=== PATIENT | female | born 1955 | race Caucasian/White ===

== ENCOUNTER 2020-05-12 11:42 | Day surgery (SDC) | payer MEDICARE, SELFPAY ==
--- NOTE | 2020-05-12 | PATH_ITS ---
[facility] Accession Number: [id number] . 01 Material submitted: . PART A: colon - POLYP AT 60CM PART B: colon - POLYP AT 10 PART C: colon - CECAL POLYP PART D: colon - POLYP AT 90CM PART E: colon - POLYP @ 70CM . 02 Diagnosis: A. Polyp at 60 cm: Tubular adenoma. . B. Polyp at 10 cm: Portions of tubular adenoma x2. . C. Cecal Polyp: Tubular adenoma. . D. Polyp at 90 cm: Tubular adenoma. . E. Polyp at 70 cm: Portions of tubular adenoma x2. [facility] 05/13/2020 1302 Local . 02 Electronically signed: . Yara Salmeron MD, Pathologist NPI- [id number] . 01 Gross description: . Part A: POLYP AT 60CM: Received in formalin is 1 fragment(s) of mays, soft tissue measuring 0.5 x 0.4 x 0.4 cm submitted entirely in 1 cassette(s) Part B: POLYP AT 10: Received in formalin are 2 fragment(s) of mays, soft tissue measuring 0.2 x 0.2 x 0.2 cm to 0.5 x 0.5 x 0.5 cm submitted entirely in 1 cassette(s) Part C: CECAL POLYP: Received in formalin is 1 fragment(s) of mays, soft tissue measuring 0.2 x 0.2 x 0.2 cm submitted entirely in 1 cassette(s) Part D: POLYP AT 90CM: Received in formalin is 1 fragment(s) of mays, soft tissue measuring 0.5 x 0.5 x 0.5 cm submitted entirely in 1 cassette(s) Part E: POLYP @ 70CM: Received in formalin are 2 fragment(s) of mays, soft tissue measuring 0.2 x 0.2 x 0.2 cm to 0.3 x 0.3 x 0.2 cm submitted entirely in 1 cassette(s) /LOVE 05/13/2020 0018 Local . 02 Pathologist provided ICD-10: K63.5 . 02 CPT . 157825, [id number], [id number], [id number], [id number] Performed at: 01 [facility] [address] [place] [address], [place], [place] [id number] MD David Acosta MD Phone: [phone] Performed at: 02 [facility] [address] [place], [place] [id number] MD Lynn Peralta MD Phone: [phone]
[2020-05-12 12:27] VITALS: BP 160/84; PULSE 88; RESP 22; TEMP 36.4; O2SAT 95; BMI 47.2
[2020-05-12] MEDS: LACTATED RINGERS 1,000 ML 125 ML IV (12:43)
--- NOTE | 2020-05-12 12:44 | SUR.PREOP ---
PT IS POOR HISTORIAN REGARDING HER MEDS, SHE STATES SHE IS ON 2 BLOOD PRESSURE MEDS BUT DOESNT RECALL THE NAMES, SHE ALSO STATES SHE HASNT TAKEN ANY OF HER MEDS FOR A WEEK EXCEPT HER PAIN PILL WHICH SHE TOOK THIS AM.
--- NOTE | 2020-05-12 13:00 | PM.PREOP ---
Pre-operative Note COVID-19 COVID-19 status: Negative Interval Note History & Physical reviewed/Exam performed by Physician: Yes Changes to H&P: No ASA Class (for procedural sedation): II
[2020-05-12] MEDS: fentaNYL 250 MCG/5 ML INJ IV (13:06)
[2020-05-12] MEDS: MIDAZOLAM 5 MG/5 ML VIAL IV (13:07)
--- NOTE | 2020-05-12 13:53 | PM.OP.ENDO ---
Operative Date/Time/Diagnoses Date of procedure: 05/12/20 Time of procedure: 13:53 Pre-op diagnosis: blood per rectum Post-op diagnosis: same Procedure & Clinicians Study performed: Colonoscopy Same procedure as scheduled: Yes Indications: 64-year-old female no prior colonoscopy had blood per rectum presents for routine screening Surgeon: Norm Auguste Procedure Notes SCOAP/Timeout: Performed Procedure in detail: Patient placed in left lateral decubitus position. Time out was performed. Procedural sedation was administered with Versed and Fentanyl. A rectal exam demonstrated no external hemorrhoids no internal masses. Colonoscopy scope was placed into the rectum and advanced through the colon to the cecum. The ileocecal valve was identified. The scope was then slowly withdrawn examining colon thoroughly in all directions. The colonoscopy was notable for the following. There were multiple adenomatous appearing polyps all less than 2 cm in diameter. 1. Adenomatous polyp 60 cm removed with hot snare 2. Adenomatous polyps x 2 at 100 cm removed with hot snare 3. Less than 1 cm diameter adenomatous polyp removed from cecum with biopsy forceps 4. Adenomatous appearing polyp less than 1 cm at 90 cm removed with biopsy forceps 5. Adenomatous polyp by 1.5 cm at 70 cm removed with hot snare 6. Quality of prep fair Scope withdrawal time: 14 Sedation minutes: 40 Findings: polyp Specimen(s): other (Polyps from 60 cm, 100 cm x 2, cecum, 90 cm, 70 cm) Complications: none Impression: Multiple polyps Post-procedure Recommendations: Colonscopy in 3 years Disposition: same day surgery
[2020-05-12 14:00] VITALS: BP 150/79; PULSE 67; RESP 15; TEMP 36.1; O2SAT 97
[2020-05-12 14:05] VITALS: BP 106/71; PULSE 74; RESP 12; O2SAT 98
[2020-05-12 14:10] VITALS: BP 152/78; PULSE 67; RESP 12; O2SAT 97
[2020-05-12 14:15] VITALS: BP 137/84; PULSE 62; RESP 13; O2SAT 94
[2020-05-12 14:21] VITALS: BP 138/77; PULSE 64; RESP 14; O2SAT 98
== END 2020-05-12 14:35 | disposition home or self-care (01) ==
PROVIDERS: Family Provider Family Medicine; PCP Family Medicine; Referring Provider Surgery; Visit Provider Surgery
PROC: 0DJD8ZZ Inspection of Lower Intestinal Tract, Via Natural or Artificial Opening Endoscopic (ICD-10-PCS; CPT 45378; principal; 2020-05-12 13:00)
DX: K62.5 Hemorrhage of anus and rectum (principal); D12.0 Benign neoplasm of cecum; D12.6 Benign neoplasm of colon, unspecified; E66.9 Obesity, unspecified
CPT/HCPCS: 45385; 45380; 99152; 99153; J2250; J3010

== ENCOUNTER → 2022-06-12 11:50 | Outpatient (CLI) | payer MEDICARE, SELFPAY ==
[2022-06-12 12:17] LABS: Add Manual Diff / Slide Review NO; Basophils Absolute Auto 100 /uL (0-100); Basophils Percent Auto 0.8 % (0-2); Eosinophils Absolute Auto 800 /uL (0-450); Eosinophils Percent Auto 9.8 % (2-4); Hematocrit 37.7 % (36-46); Hemoglobin 12.7 g/dL (12.0-16.0); Lymphocytes Absolute Auto 1900 /uL (1100-4500); Lymphocytes Percent Auto 25.4 % (25-40); Mean Corpuscular HGB Conc 33.6 % (30-36); Mean Corpuscular Hemoglobin 29.2 PG (26-34); Mean Corpuscular Volume 86.9 fL (80-100); Monocytes Absolute Auto 500 /uL (0-900); Monocytes Percent Auto 6.5 % (3-14); Neutrophils Absolute Auto 4400 /uL (1500-7000); Neutrophils Percent Auto 57.5 % (50-75); Platelet Count 212 X10^3/uL (150-400); Red Blood Cell Count 4.33 X10^6/uL (4.0-5.2); Red Cell Distribution Width 15.4 % (11.6-14.8); White Blood Cell Count 7.7 X10^3/uL (4.5-11.0)
[2022-06-12 12:29] LABS: Alanine Aminotransferase 30 IU/L (<35); Albumin 4.1 g/dL (3.5-5.0); Albumin Globulin Ratio 1.5 (1.0-2.8); Alkaline Phosphatase 91 U/L (38-126); Aspartate Aminotransferase 36 IU/L (14-36); BUN Creatinine Ratio 47.8 (6-22); Bilirubin Total 0.6 mg/dL (0.2-1.3); Blood Urea Nitrogen 43 mg/dL (7-17); Carbon Dioxide 28 mmol/L (22-32); Chloride 101 mmol/L (98-107); Estimated Glomerular Filt Rate > 60 mL/min (>60); Globulin 2.7 g/dL (1.7-4.1); Glucose 116 mg/dL (80-110); HEMOLYSIS < 15 (0-50); Potassium 4.8 mmol/L (3.4-5.1); Sodium 138 mmol/L (137-145); Total Protein 6.8 g/dL (6.3-8.2)
[2022-06-12 13:15] LABS: Hemoglobin A1C% w Est Avg Glu 5.8 % (4.0-6.0)
--- NOTE | 2022-06-12 13:46 | DI.CT.S_ITS ---
PROCEDURE: CT ABDOMEN PELVIS W CON INDICATIONS: INTRA-ABDOMINAL AND PELVIC SWELLING/MASS/LUMP TECHNIQUE: After the administration of oral and IV contrast, axial sections were acquired from the lung bases to the pubic symphysis. Coronal and sagittal reformats were performed. For radiation dose reduction, the following was used: automated exposure control, adjustment of mA and/or kV according to patient size. COMPARISON: [facility], CT, CT ABDOMEN PELVIS WITH CONTRAST, 12/28/2020, 6:45. FINDINGS: Image quality: Excellent. Lung bases: Respiratory motion at the lung bases. No dense consolidations or pleural effusions. There is a focal patchy opacity medial right lung base, nonspecific. Heart: Mildly enlarged heart. Aortic valvular calcification. Partially imaged bilateral hilar and mediastinal adenopathy. Normal esophagus without hiatal hernia. ABDOMEN: Liver: Normal size liver with a smooth margin. No mass. Gallbladder: Normal gallbladder with dependently layering sludge. Biliary ducts: Nondilated. Pancreas: Diminutive. Spleen: Normal size. Adrenal Glands: No nodules. Kidneys and Ureters: Nonobstructing calcification in the left lower pole and left midpole measuring 3 mm or less. Cortical left upper pole subcentimeter cyst. No hydronephrosis or hydroureter. Stomach and Bowel: The stomach is distended filled with gas and fluid. Small bowel loops are normal caliber. There is solid stool present throughout the colon, increased in quantity. No wall thickening or inflammatory change. Peritoneum: No abnormal intraperitoneal fluid. No free air. Ventral Wall: No hernia. Abdominal Nodes: No retroperitoneal or mesenteric adenopathy by size criteria. Vessels: Aorta is normal caliber with mild calcification. Inferior vena cava is slightly decreased caliber indicating low volume state. PELVIS: Pelvic Organs: The uterus is surgically absent. No suspicious adnexal masses. Bladder: Within the urinary bladder, there is posteriorly layering hyperdense material, possibly excreted contrast versus soft tissue. Urinary bladder wall is normal. Pelvic Nodes: No enlarged lymph nodes. Miscellaneous: No inguinal hernias are seen. Bones: Severe degenerative changes throughout the thoracic spine with bridging osteophytosis anteriorly. Degenerative disc height loss at L5-S1. IMPRESSION: 1. Posterior urinary bladder wall mass versus excreted contrast. Correlate with any history of hematuria. 2. Colonic obstipation. 3. Partially imaged bilateral hilar and mediastinal adenopathy. 4. Nonobstructing left nephrolithiasis. 5. Gaseous and fluid distention of the stomach. Consider gastroparesis or recently ingested material. Dictated by: Venessa Cabrera M.D. on 06/12/2022 at 18:33 Approved by: Venessa Cabrera M.D. on 06/12/2022 at 18:40
== END ==
PROVIDERS: Family Provider Family Medicine; PCP Family Medicine; Referring Provider Family Medicine; Visit Provider Family Medicine
DX: R19.00 Intra-abdominal and pelvic swelling, mass and lump, unspecified site (principal); E11.9 Type 2 diabetes mellitus without complications
CPT/HCPCS: 36415; 74177; 80053; 83036; 85025

== ENCOUNTER → 2022-06-20 | Outpatient (CLI) | payer MEDICARE, SELFPAY ==
--- NOTE | 2022-06-20 | DI.CT.S_ITS ---
PROCEDURE: CT CHEST W CON INDICATIONS: Localized enlarged lymph nodes TECHNIQUE: After the administration of intravenous contrast, 5 mm thick sections acquired from the pulmonary apices to the posterior costophrenic angles. 1 mm axial lung, 5 mm thick coronal and sagittal reformats and 7 mm axial MIP were acquired. For radiation dose reduction, the following was used: automated exposure control, adjustment of mA and/or kV according to patient size. COMPARISON: None. FINDINGS: Image quality: Excellent. Lungs and pleura: No acute air space opacities. No pleural effusions or pneumothorax. Central and peripheral airways are patent and normal in caliber. Mediastinum: Heart size is normal. The coronary arteries have atherosclerotic calcifications. No pericardial effusion. No mediastinal adenopathy by size criteria. Thoracic aorta and central pulmonary arteries are normal in size. Esophagus is normal in caliber. No hiatal hernia. Bones and chest wall: No suspicious bony lesions. No vertebral body compression fractures. No axillary or supraclavicular adenopathy by size criteria. Thyroid gland is normal. Abdomen: Limited visualization of the upper abdomen shows no acute abnormality. IMPRESSION: 1. No acute abnormality of the chest. 2. No adenopathy of the thorax. Dictated by: Riky Pimentel M.D. on 06/20/2022 at 15:33 Approved by: Riky Pimentel M.D. on 06/20/2022 at 15:38
== END ==
PROVIDERS: Family Provider Family Medicine; PCP Family Medicine; Referring Provider Family Medicine; Visit Provider Family Medicine
DX: R59.0 Localized enlarged lymph nodes (principal)
CPT/HCPCS: 71260